=== PATIENT | female | born 1975 | race Caucasian/White ===

== ENCOUNTER 2021-07-04 07:36 | Day surgery (SDC) | payer BC ==
[2021-06-28 11:25] LABS: BASOPHILS % (AUTO) 0.5 % (0.0-5.0); EOSINOPHILS % (AUTO) 0.5 % (0.0-8.0); HEMATOCRIT 38.9 % (36-48); LYMPHOCYTES % (AUTO) 27.8 % (21.0-51.0); MEAN CORPUSCULAR HEMOGLOBIN 29.6 pg (27.0-33.0); MEAN CORPUSCULAR HGB CONC 32.9 g/dL (32.0-36.0); MONOCYTES % (AUTO) 6.9 % (3.0-13.0); NEUTROPHILS % (AUTO) 63.9 % (40.0-77.0); PLATELET COUNT (AUTO) 185 K/uL (130-400); RED BLOOD CELL COUNT(AUTO) 4.32 MIL/uL (4.00-5.50); RED CELL DISTRIBUTION WIDTH 12.7 % (11.0-15.5); WHITE BLOOD COUNT (AUTO) 5.6 K/uL (4.8-10.8)
[2021-07-03 10:52] VITALS: BP 106/65
[2021-07-04] VITALS (16 sets, daily range): BP systolic 113–148; BP diastolic 67–84
[~2021-07-04] VITALS: Ht 165.1 cm; Wt 57.5 kg
[~2021-07-04 07:36] MED LIST: LACTATED RINGERS 1000ML 1,000 ML IV SCH
[2021-07-04] MEDS ORDERED: ACET-2061 PO (08:55)
[2021-07-04] MEDS ORDERED: CETI10CA5 PO (08:55)
[2021-07-04] MEDS ORDERED: MIDAZOLAM HCL 1 MG/ML 2ML VIAL ONE (09:28)
[2021-07-04] MEDS ORDERED: FENTANYL CITRATE PF 50 MCG/1 ML 2ML VIAL ONE (09:28)
[2021-07-04] MEDS ORDERED: PROPOFOL 10 MG/ML 20ML VIAL IV ONE (09:28)
[2021-07-04] MEDS ORDERED: LIDOCAINE PF 100MG/5ML (2%) SYRINGE 5ML ONE (09:28)
[2021-07-04] MEDS ORDERED: ONDANSETRON 4MG INJ ONE (09:29)
[2021-07-04] MEDS ORDERED: DEXAMETHASONE SOD PHOSPHATE 4 MG/ML 1ML VIAL ONE (09:29)
[2021-07-04] MEDS ORDERED: DEXAMETHASONE SOD PHOSPHATE 10MG/ML 1ML VIAL ONE (09:41)
[2021-07-04] MEDS ORDERED: SILVER NITRATE APPLICATOR 1 SWAB TP ONE (10:03)
[2021-07-04] MEDS ORDERED: MEPERIDINE-PF 25 MG/ML SYG ONE (10:41)
== END 2021-07-04 11:45 | disposition home or self-care (01) ==
LOC: DAH 07:36
PROVIDERS: ATTEND Specialist
DX: N94.6 Dysmenorrhea, unspecified (principal); N92.0 Excessive and frequent menstruation with regular cycle; R10.2 Pelvic and perineal pain; Z20.822 Contact with and (suspected) exposure to COVID-19
CPT/HCPCS: 36415; 58120; 84703; 85025; 87635; A4215; A4221; A4222; A4223; A4351; A4663; A4930; A6260; C9803; J1100 ×2; J2001; J2175; J2250; J2405; J2704; J3010; J7120